=== PATIENT | female | born 1995 | race Caucasian/White ===

== ENCOUNTER 2018-12-05 13:24 | Emergency (ER) | payer OTHER ==
[~2018-12-05] VITALS: Ht 157.5 cm; Wt 73.0 kg
[2018-12-05 15:35] VITALS: BP 116/86
== END 2018-12-05 15:35 | disposition home or self-care (01) ==
LOC: ED 13:24
DX: G89.29 Other chronic pain (principal); M54.5 Low back pain
CPT/HCPCS: J1885

== ENCOUNTER 2019-01-04 10:40 | Emergency (ER) | payer OTHER ==
[~2019-01-04] VITALS: Ht 157.5 cm; Wt 75.3 kg
[2019-01-04 11:23] VITALS: BP 137/78; Ht 157.5 cm; Wt 75.3 kg
== END 2019-01-04 12:36 | disposition home or self-care (01) ==
LOC: ED 10:40
DX: M54.42 Lumbago with sciatica, left side (principal)
CPT/HCPCS: J1885

== ENCOUNTER 2019-05-15 01:37 | Emergency (ER) | payer BC ==
[~2019-05-15] VITALS: Ht 157.5 cm; Wt 74.8 kg
[2019-05-15 01:51] VITALS: Ht 157.5 cm; Wt 74.8 kg
[2019-05-15 03:10] LABS: BASOPHIL % 0.2 % (0-2); CALCIUM 9.5 mg/dL (8.5-10.1); CARBON DIOXIDE 21.9 mmol/L (21-32); CHLORIDE SERUM 109 mmol/L (98-107); GFR1 > 60 mL/min; GLUCOSE SERUM 122 mg/dL (74-106); PLATELET COUNT 271 x10^3mcL (130-400); POTASSIUM SERUM 3.5 mmol/L (3.5-5.1); RED CELL DISTRIBUTION WIDTH 12.9 % (11.5-14.5); SODIUM SERUM 147 mmol/L (136-145)
[2019-05-15 03:14] LABS: ALKALINE PHOSPHATASE 84 U/L (46-116); ALT/SGPT 24 U/L (14-59); AST/SGOT 10 U/L (15-37); BILIRUBIN TOTAL 0.22 mg/dL (0.20-1.00); TOTAL PROTEIN, SERUM 7.8 g/dL (6.4-8.2)
[2019-05-15 04:17] LABS: microscopic required? YES
[2019-05-15 04:18] LABS: urine erythrocyte 3+ (NEGATIVE)
[2019-05-15 05:59] VITALS: BP 120/69
== END 2019-05-15 05:59 | disposition home or self-care (01) ==
LOC: ED 01:37
PROVIDERS: Emergency Medicine
DX: B34.9 Viral infection, unspecified (principal); R11.10 Vomiting, unspecified
CPT/HCPCS: J1885; J2405

== ENCOUNTER 2020-11-20 20:03 | Emergency (ER) | payer BC ==
[~2020-11-20] VITALS: Ht 157.5 cm; Wt 79.8 kg
[2020-11-20 20:40] VITALS: BP 158/80; Ht 157.5 cm; Wt 79.8 kg
== END 2020-11-20 21:11 | disposition home or self-care (01) ==
LOC: ED 20:03
DX: R51.9 Headache, unspecified (principal)